=== PATIENT | male | born 1975 | race Caucasian/White ===

== ENCOUNTER 2021-06-22 17:43 | Inpatient (IN) | payer MEDICAID ==
[~2021-06-22] VITALS: Ht 157.5 cm; Wt 87.1 kg
[2021-06-22 17:48] VITALS: BP 145/93
--- NOTE | 2021-06-22 18:29 | NUR ---
45 Y/O M BIB SELF FROM HOME, PATIENT PRESENTS TO ED WITH LOWER QUADRANT PAIN, TESTICULAR SWELLING, RADIATES TO LOWER BACK FOR 1 MONTH, WORSENED YESTERDAY. PT DENIES HEMATURIA, - CVA TENDERNESS, DYSURIA. DENIES N/V/D; SKIN IS PINK/WARM/DRY; AAOX4 WITH EVEN AND STEADY GAIT; LUNGS CLEAR BL; HR EVEN AND REGULAR; PT DENIES ANY FEVER, CP, SOB, OR COUGH AT THIS TIME; PATIENT STATES PAIN OF 10/10 AT THIS TIME; VSS; PATIENT POSITIONED FOR COMFORT; HOB ELEVATED; BEDRAILS UP X2; BED DOWN. ER MD MADE AWARE OF PT STATUS. PMH: DENIES ALLERGY: PENICILLIN (HIVES) MED: TYLENOL LAST NIGHT 500MG RELIEF
[2021-06-22 18:45] LABS: BASOPHILS % (AUTO) 0.4 % (0.0-2.0); EOSINOPHILS # (AUTO) 0.1 K/uL (0-0.4); HEMATOCRIT 33.9 % (36-52); HEMOGLOBIN 11.3 g/dL (12.0-18.0); LYMPHOCYTES # (AUTO) 1.1 K/uL (2.0-11.5); LYMPHOCYTES % (AUTO) 9.2 % (20.5-51.1); MEAN CORPUSCULAR HEMOGLOBIN 30 pg (27-31); MEAN CORPUSCULAR HGB CONC 33 g/dL (33-37); MONOCYTES % (AUTO) 8.6 % (1.7-9.3); NEUTROPHILS # (AUTO) 9.2 K/uL (1.8-7.7); NEUTROPHILS % (AUTO) 80.8 % (42.2-75.2); PLATELET COUNT (AUTO) 356 K/uL (140-450); RED CELL DISTRIBUTION WIDTH 13.2 % (11.6-13.7); WHITE BLOOD COUNT (AUTO) 11.4 K/uL (4.8-10.8)
[2021-06-22] MEDS ORDERED: NACL 0.9% 1,000 ML IV SCH (18:55)
[2021-06-22] MEDS ORDERED: KETOROLAC 30 MG/ML VIAL IVP ONE (18:55)
[2021-06-22] MEDS ORDERED: ONDANSETRON 4 MG/2 ML VIAL IVP ONE (18:55)
[2021-06-22 18:58] LABS: ALBUMIN 3.4 g/dL (3.4-5.0); CARBON DIOXIDE 28.8 mmol/L (21-32); CREATININE 1.7 mg/dL (0.6-1.3); POTASSIUM 3.8 mmol/L (3.5-5.1); TOTAL BILIRUBIN 0.3 mg/dL (0.0-1.0)
[2021-06-22 19:13] LABS: APPEARANCE,URINE CLEAR (CLEAR); BILIRUBIN,URINE NEGATIVE (NEGATIVE); BLOOD, URINE NEGATIVE (NEGATIVE); COLOR,URINE YELLOW (YELLOW); LEUKOCYTE ESTERASE ,URINE NEGATIVE (NEGATIVE); NITRITE, URINE NEGATIVE (NEGATIVE); UGLUCOSE NEGATIVE (NEGATIVE)
--- NOTE | 2021-06-22 22:00 | NUR ---
PT. SITTING IN HIGH FOWLERS POSITION, VOICES NO COMPLAINTS AT THIS TIME. HR EVEN AND REGULAR WITH BREATHING UNLABORED. NO DISTRESS NOTED.
--- NOTE | 2021-06-22 22:39 | NUR ---
PT. TAKEN TO CT VIA W/C
--- NOTE | 2021-06-22 22:55 | NUR ---
PT. BACK FROM CT
[2021-06-23] MEDS ORDERED: HYDROcodone/APAP 5/325 MG 1 TAB TAB PO PRN (00:50)
[2021-06-23] MEDS ORDERED: SODIUM PHOS / POTASSIUM PHOS 1 PKT PDR PO PRN (00:50)
[2021-06-23] MEDS ORDERED: ACETAMINOPHEN 325 MG TAB PO PRN (00:50)
[2021-06-23] MEDS ORDERED: DOCUSATE SODIUM 100 MG GELCAP PO PRN (00:50)
[2021-06-23] MEDS ORDERED: POTASSIUM CHLORIDE 10 MEQ TABER PO PRN (00:50)
[2021-06-23] MEDS ORDERED: ONDANSETRON 4 MG/2 ML VIAL IM/IVP PRN (00:50)
[2021-06-23] MEDS ORDERED: MORPHINE SULFATE 2 MG/ML SYR IVP PRN (00:50)
[2021-06-23] MEDS ORDERED: MAGNESIUM OXIDE 400 MG TAB PO PRN (00:50)
--- NOTE | 2021-06-23 00:50 | NUR ---
PT. SITTING COMFORTABLY IN BED, VOICES NO COMPLAINTS AT THIS TIME. HR EVEN AND REGULAR WITH BREATHING UNLABORED. WILL CONTINUE TO MONITOR
[2021-06-23] MEDS: NACL 0.9% 1,000 ML IV SCH ×2 (01:08→17:30)
[2021-06-23 01:41] LABS: MAGNESIUM 2.3 mg/dL (1.8-2.4); PHOSPHORUS 4.5 mg/dL (2.5-4.9)
--- NOTE | 2021-06-23 01:45 | NUR ---
CALVIN SWAB COLLECTED AND WALKED TO LAB
[2021-06-23 01:46] LABS: BARBITURATE, URINE NEGATIVE ng/ml (NEG <=200); BENZODIAZEPINE, URINE NEGATIVE ng/mL (NEG <=200); CANNABINOID, URINE NEGATIVE ng/mL (NEG <=50); COCAINE, URINE NEGATIVE ng/mL (NEG <=300); OPIATE, URINE NEGATIVE ng/mL (NEG <=2000); PHENCYCLIDINE SCREEN,URINE NEGATIVE ng/mL (NEG <=25)
--- NOTE | 2021-06-23 02:07 | NUR ---
received report from Devendra ROGERS. pt currently a/o x 4, gcs 15. able to move all extremities freely. placed on vs monitor. able to speak in complete sentences. NAD at this time. NORA
--- NOTE | 2021-06-23 07:13 | NUR ---
Report received from SUE Osborn and care was assumed.
--- NOTE | 2021-06-23 08:12 | NUR ---
Patient resting comfortably in bed, VSS, bed locked and in the lowest position for patient's safety, and call light within reach.
--- NOTE | 2021-06-23 08:31 | NUR ---
MD at the bedside evaluating patient.
[2021-06-23] MEDS ORDERED: predniSONE 20 MG TAB PO SCH ×3 (09:05→15:02)
--- NOTE | 2021-06-23 09:10 | NUR ---
Patient provided with breakfast tray.
[2021-06-23] MEDS: PANTOPRAZOLE 40 MG TABEC PO SCH (09:17)
[2021-06-23 09:30] LABS: BASOPHILS # (AUTO) 0.1 K/uL (0.00-0.22); BASOPHILS % (AUTO) 0.6 % (0.0-2.0); EOSINOPHILS # (AUTO) 0.2 K/uL (0-0.4); EOSINOPHILS % (AUTO) 1.9 % (0.0-4.0); HEMOGLOBIN 11.4 g/dL (12.0-18.0); LYMPHOCYTES % (AUTO) 10.9 % (20.5-51.1); MEAN CORPUSCULAR HEMOGLOBIN 30 pg (27-31); MEAN CORPUSCULAR HGB CONC 34 g/dL (33-37); MEAN CORPUSCULAR VOLUME 89.6 fL (80-94); MONOCYTES # (AUTO) 0.7 K/uL (0.8-1.0); MONOCYTES % (AUTO) 7.6 % (1.7-9.3); PLATELET COUNT (AUTO) 340 K/uL (140-450); RED BLOOD CELL COUNT(AUTO) 3.79 MIL/uL (4.20-6.10); RED CELL DISTRIBUTION WIDTH 13.2 % (11.6-13.7); WHITE BLOOD COUNT (AUTO) 8.9 K/uL (4.8-10.8)
[2021-06-23 09:38] LABS: CARBON DIOXIDE 25.9 mmol/L (21-32); CREATININE 1.8 mg/dL (0.6-1.3); POTASSIUM 3.9 mmol/L (3.5-5.1)
--- NOTE | 2021-06-23 10:05 | NUR ---
Patient ambulated to the restroom with a steady gait.
--- NOTE | 2021-06-23 10:42 | NUR ---
Dr. Norton at the bedside evaluating patient.
--- NOTE | 2021-06-23 11:18 | NUR ---
Patient resting comfortably in bed, VSS, bed locked and in the lowest position for patient's safety, and call light within reach.
--- NOTE | 2021-06-23 12:18 | NUR ---
Patient resting comfortably in bed, VSS, bed locked and in the lowest position for patient's safety, and call light within reach.
--- NOTE | 2021-06-23 13:17 | NUR ---
Patient resting comfortably in bed, VSS, bed locked and in the lowest position for patient's safety, and call light within reach.
--- NOTE | 2021-06-23 14:10 | NUR ---
Patient ambulated to the restroom.
--- NOTE | 2021-06-23 15:10 | NUR ---
Per Dr. Mary German, patient is to get an additional 20mg of prednisone and then 40mg, PO daily starting tomorrow.
[2021-06-23 15:42] VITALS: BP 151/91
--- NOTE | 2021-06-23 15:42 | NUR ---
RECEIVED PATIENT FROM ER. PATIENT IS ADMITTED FOR BILATERAL HYDRONEPHROSIS. PATIENT IS A&O X4. PATIENT IS ON ROOM AIR; RESPIRATIONS ARE EVEN AND UNLABORED. IV SITE IS A 20G AT THE LEFT AC; IT IS DRY AND INTACT. PATIENT DENIES ANY PAIN. NO S/S OF DISTRESS. ALL SAFETY PRECAUTIONS IN PLACE.
--- NOTE | 2021-06-23 15:43 | NUR ---
Patient will be admitted to care of Dr. Mary German. Admited to Med/Surg. Will go to room 106A. Belongings list completed. Report to SUE Dixon.
--- NOTE | 2021-06-23 16:22 | NUR ---
PATIENT HAS BEEN SCREENED AND CATEGORIZED LOW NUTRITION RISK. PATIENT WILL BE SEEN WITHIN 7 DAYS OF ADMISSION. 06/29/[address]
--- NOTE | 2021-06-23 17:00 | NUR ---
PATIENT HAS FAMILY AT BEDSIDE. PATIENT IS AWAKE AND STABLE. NO S/S OF DISTRESS. ALL SAFETY PRECAUTIONS IN PLACE.
--- NOTE | 2021-06-23 19:14 | NUR ---
ENDORSED PATIENT TO DIRECT CARE COUNSELOR RN FOR CONTINUITY OF CARE. PATIENT IS STABLE.
--- NOTE | 2021-06-23 19:15 | NUR ---
RECEIVED REPORT FROM AM NURSE. PATIENT IS AAOX4. NO S/S OF RESPIRATORY DISTRESS. IVF INFUSING WELL ON THE LAC. SAFETY MEASURES ARE IN PLACE. CALL LIGHT WITHIN REACH. NO COMPLAINTS OF PAIN AT THIS TIME. WILL CONTINUE TO MONITOR.
[2021-06-24] VITALS: BP 138/84
--- NOTE | 2021-06-24 02:00 | NUR ---
PATIENT IS SLEEPING. NO SOB NOTED. CALL LIGHT WITHIN REACH.
[2021-06-24 07:24] LABS: BASOPHILS % (AUTO) 0.4 % (0.0-2.0); EOSINOPHILS # (AUTO) 0.1 K/uL (0-0.4); EOSINOPHILS % (AUTO) 0.6 % (0.0-4.0); HEMATOCRIT 31.8 % (36-52); HEMOGLOBIN 10.7 g/dL (12.0-18.0); LYMPHOCYTES # (AUTO) 1.1 K/uL (2.0-11.5); LYMPHOCYTES % (AUTO) 10.1 % (20.5-51.1); MEAN CORPUSCULAR HEMOGLOBIN 30 pg (27-31); MEAN CORPUSCULAR HGB CONC 34 g/dL (33-37); MEAN CORPUSCULAR VOLUME 89.3 fL (80-94); MONOCYTES # (AUTO) 0.8 K/uL (0.8-1.0); MONOCYTES % (AUTO) 7.7 % (1.7-9.3); NEUTROPHILS # (AUTO) 8.7 K/uL (1.8-7.7); NEUTROPHILS % (AUTO) 81.2 % (42.2-75.2); PLATELET COUNT (AUTO) 337 K/uL (140-450); RED BLOOD CELL COUNT(AUTO) 3.55 MIL/uL (4.20-6.10); RED CELL DISTRIBUTION WIDTH 13.1 % (11.6-13.7); WHITE BLOOD COUNT (AUTO) 10.7 K/uL (4.8-10.8)
--- NOTE | 2021-06-24 07:45 | NUR ---
ENDORSED TO AM NURSE FOR CONTINUITY OF CARE. PATIENT IS STABLE.
--- NOTE | 2021-06-24 07:47 | NUR ---
RECEIVED REPORT FROM ROLL COVERER RN FOR CONTINUITY OF CARE. PATIENT IS RESTING IN BED. NO S/S OF DISTRESS. ALL SAFETY PRECAUTIONS IN PLACE.
[2021-06-24 08:00] VITALS: BP 139/79
[2021-06-24] MEDS: PANTOPRAZOLE 40 MG TABEC PO SCH (08:20)
[2021-06-24 08:48] LABS: ANION GAP 15.7 (8-16); CARBON DIOXIDE 24.4 mmol/L (21-32); CREATININE 1.5 mg/dL (0.6-1.3); POTASSIUM 4.1 mmol/L (3.5-5.1)
[2021-06-24] MEDS ORDERED: predniSONE 20 MG TAB PO SCH (09:00)
[2021-06-24] MEDS: NACL 0.9% 1,000 ML IV SCH (10:10)
--- NOTE | 2021-06-24 11:55 | NUR ---
DR. YAÑEZ AND BEDSIDE DISCUSSING POC WITH PATIENT.
--- NOTE | 2021-06-24 13:00 | NUR ---
CHECKED ON PATIENT. PATIENT IS STABLE. NO S/S OF DISTRESS. HE STATES HE HAS NOT FELT ANY PAIN OR DISCOMFORT. ALL SAFETY PRECAUTIONS IN PLACE. WILL CONTINUE TO MONITOR.
[2021-06-24 13:24] LABS: PROTHROMBIN TIME 10.4 secs (10.8-13.4)
--- NOTE | 2021-06-24 14:29 | NUR ---
PATIENT'S GENIA IS AT BEDSIDE. PATIENT IS STABLE. NO S/S OF DISTRESS. ALL SAFETY PRECAUTIONS IN PLACE.
[2021-06-24] MEDS ORDERED: PRED20TA5 PO (15:30)
[2021-06-24] MEDS ORDERED: TAMS0.4C96 PO (15:32)
--- NOTE | 2021-06-24 16:35 | NUR ---
ENDORSED THE RISKS AND BENEFITS OF LEAVING AMA. PATIENT VERBALIZED UNDERSTANDING AND STILL WANTED TO SIGN AMA.
== END 2021-06-24 16:45 | disposition left against medical advice (07) | DRG 465 ==
LOC: MED 17:43 → MMU 06-23 00:27 → MTU 06-23 15:14
PROVIDERS: ADMIT Hospitalist; ATTEND Hospitalist
DX: N13.30 Unspecified hydronephrosis (principal); N17.0 Acute kidney failure with tubular necrosis; N13.5 Crossing vessel and stricture of ureter without hydronephrosis; Z20.822 Contact with and (suspected) exposure to COVID-19; N18.9 Chronic kidney disease, unspecified; D64.9 Anemia, unspecified; K76.0 Fatty (change of) liver, not elsewhere classified; Z88.0 Allergy status to penicillin; D63.8 Anemia in other chronic diseases classified elsewhere
CPT/HCPCS: 36415; 71275; 76870; 80048; 80053; 80305; 81003; 83690; 83735; 84100; 85025; 85610; 85651; 85730; 86140; 87081; 96361; 96374; 96375; 99285; J1885; J2405; J7512; Q0092; Q9967